=== PATIENT | female | born 1955 | race Caucasian/White ===

== ENCOUNTER 2018-08-07 05:58 | Inpatient (IN) ==
[2018-08-02 09:36] LABS: Basophils # 0.1 10*3/uL (0.0-0.2); Basophils % 1.5 % (0.0-0.8); Eosinophils # 0.2 10*3/uL (0.0-0.87); Eosinophils % 2.3 % (0.00-10.9); Hematocrit 45.1 VOL% (35.7-47.0); Hemoglobin 15.2 GM/DL (12.0-16.0); Immature Granulocytes % 0.3 %; Immature Granulocytes Absolute 0.02 #; Lymphocytes # 2.1 10*3/uL (1.4-4.0); Lymphocytes % 30.4 % (21.3-54.2); Mean Corpuscular HGB Conc 33.7 GM/DL (32-36); Mean Corpuscular Hemoglobin 32 PG (27-34); Mean Platelet Volume 10.4 FL (9.6-12.0); Monocytes # 0.6 10*3/uL (0.11-0.8); Monocytes % 8.9 % (1.7-12.7); Neutrophils # 3.9 10*3/uL (1.4-7.4); Neutrophils % 56.6 % (38.7-73.9); Platelet Count 261 T/CUMM (130-400); Red Cell Distribution Width 12.1 % (9.3-17.3); White Blood Count 6.9 T/CUMM (4-12)
[2018-08-02 09:46] LABS: PT Patient Result 10.2 SECS; Partial Thromboplastin Time 25.9 SECS (0-40)
[2018-08-02 10:05] LABS: Albumin 3.7 G/DL (3.4-5.0); Bilirubin,Total 0.6 MG/DL (0.2-1.0); Calcium 10.1 MG/DL (8.5-10.1); Total Protein 7.9 G/DL (6.4-8.3)
[2018-08-02 10:06] LABS: Osmolality,Calculated 275.7 MOS/KG (273-304); Potassium 4.4 MMOL/L (3.5-5.1)
[2018-08-02 10:25] LABS: Apearance,Urine Slightly Hazy (Clear); Bacteria,Urine Occasional /HPF (Few); Bilirubin,Urine Negative (Negative); Blood, Urine Negative (Negative); Glucose,Urine (UA) Negative (Negative); Ketones,Urine Negative (Negative); Mucus,Urine Occasional /LPF (Occasional); Nitrite,Urine Negative (Negative); Protein,Urine Negative; RBC,Urine <1 /HPF (0-4); Squamous Epithelial Cell,Urine Occasional /HPF (0-10); Urine Color Yellow (Yellow); Urine Specific Gravity 1.016 (1.001-1.035)
[2018-08-07] MEDS ORDERED: ceFAZolin 1,000 MG in SYRINGE 1 EACH IV ONE (06:00)
[2018-08-07] MEDS ORDERED: VANCOMYCIN INJ 1,000 MG in SODIUM CHLORIDE 0.9% 250 ML IV ONE (06:00)
[2018-08-07] MEDS ORDERED: ROPIVACAINE 0.5% 30 ML VIAL ONE (06:29)
[2018-08-07] MEDS ORDERED: LORazepam 1 MG TABLET PO ONE (08:16)
[2018-08-07] MEDS ORDERED: FAMOTIDINE 20 MG TABLET PO ONE (08:16)
[2018-08-07] MEDS ORDERED: ceFAZolin 1,000 MG VIAL ONE (08:18)
[2018-08-07] MEDS ORDERED: VANCOMYCIN 1,000 MG VIAL ONE (08:18)
[2018-08-07] MEDS ORDERED: LORazepam 1 MG TABLET ONE (08:19)
[2018-08-07] MEDS ORDERED: FAMOTIDINE 20 MG TABLET ONE (08:19)
[2018-08-07] MEDS ORDERED: LACTATED RINGERS 1,000 ML IV SCH (08:30)
[2018-08-07] MEDS ORDERED: TRANEXAMIC ACID 1,000 MG/10 ML VIAL ONE (08:47)
[2018-08-07] MEDS ORDERED: BUPIVACAINE SPINAL 0.75% 2 ML AMP SPINAL ONE (08:47)
[2018-08-07] MEDS ORDERED: MIDAZOLAM 2 MG/2 ML VIAL ONE (09:08)
[2018-08-07] MEDS ORDERED: BACITRACIN OINT 0.9 GM PACK TOP ONE (10:48)
[2018-08-07] MEDS ORDERED: MORPHINE 4 MG/1 ML VIAL IV PRN (11:17)
[2018-08-07] MEDS ORDERED: oxyCODONE IR 5 MG TABLET PO PRN ×2 (11:17)
[2018-08-07] MEDS ORDERED: MAGNESIUM HYDROXIDE SUSP 30 ML UDCUP PO PRN (11:17)
[2018-08-07] MEDS ORDERED: ONDANSETRON 4 MG/2 ML VIAL IV PRN (11:17)
[2018-08-07] MEDS ORDERED: ZALEPLON 5 MG CAPSULE PO PRN (11:17)
[2018-08-07] MEDS ORDERED: diphenhydrAMINE CAP 25 MG CAPSULE PO PRN (11:17)
[2018-08-07] MEDS ORDERED: PHENYLEPHRINE 1 MG/10 ML SYRINGE IV ONE (11:35)
[2018-08-07] MEDS ORDERED: PROPOFOL 200 MG/20 ML VIAL IV ONE (11:35)
[2018-08-07] MEDS ORDERED: LACTATED RINGERS 1,000 ML IV ONE (11:35)
[2018-08-07] MEDS ORDERED: ONDANSETRON 4 MG/2 ML VIAL ONE (11:35)
[2018-08-07] MEDS ORDERED: SODIUM CHLORIDE 0.9% 100 ML IV ONE (11:35)
[2018-08-07] MEDS ORDERED: fentaNYL 100 MCG/2 ML VIAL ONE (11:35)
[2018-08-07] MEDS: KETOROLAC 30 MG/1 ML VIAL IV SCH ×3 (13:00→23:29)
[2018-08-07] MEDS: LACTATED RINGERS 1,000 ML IV SCH ×2 (13:07→21:19)
[2018-08-07] MEDS: ACETAMINOPHEN 500 MG TABLET PO SCH ×2 (15:58→21:06)
[2018-08-07] MEDS: MORPHINE 4 MG/1 ML VIAL IV PRN ×2 (16:02→20:01)
[2018-08-07] MEDS: ceFAZolin 1,000 MG in SYRINGE 1 EACH IV SCH (17:53)
[2018-08-07] MEDS: DOCUSATE SODIUM 100 MG CAPSULE PO SCH (21:06)
[2018-08-07] MEDS: FONDAPARINUX 2.5 MG/0.5 ML SYRINGE SUBCUT SCH (21:07)
[2018-08-08] MEDS: ceFAZolin 1,000 MG in SYRINGE 1 EACH IV SCH (02:55)
[2018-08-08] MEDS: MORPHINE 4 MG/1 ML VIAL IV PRN ×2 (03:00→12:25)
[2018-08-08] MEDS: ACETAMINOPHEN 500 MG TABLET PO SCH ×2 (03:20→09:20)
[2018-08-08] MEDS: LACTATED RINGERS 1,000 ML IV SCH (04:58)
[2018-08-08] MEDS: KETOROLAC 30 MG/1 ML VIAL IV SCH (05:31)
[2018-08-08 06:28] LABS: Basophils # 0.1 10*3/uL (0.0-0.2); Eosinophils # 0.2 10*3/uL (0.0-0.87); Eosinophils % 3.3 % (0.00-10.9); Hematocrit 33.4 VOL% (35.7-47.0); Hemoglobin 11.2 GM/DL (12.0-16.0); Immature Granulocytes % 0.4 %; Immature Granulocytes Absolute 0.03 #; Lymphocytes # 1.1 10*3/uL (1.4-4.0); Lymphocytes % 16.8 % (21.3-54.2); Mean Corpuscular HGB Conc 33.5 GM/DL (32-36); Mean Corpuscular Hemoglobin 31 PG (27-34); Mean Corpuscular Volume 93.3 FL (87-102); Mean Platelet Volume 10.9 FL (9.6-12.0); Monocytes # 0.5 10*3/uL (0.11-0.8); Monocytes % 7.2 % (1.7-12.7); Neutrophils # 4.8 10*3/uL (1.4-7.4); Neutrophils % 71.3 % (38.7-73.9); Platelet Count 204 T/CUMM (130-400); Red Blood Count 3.58 MC/CUMM (3.8-5.5); White Blood Count 6.7 T/CUMM (4-12)
[2018-08-08 06:52] LABS: Osmolality,Calculated 280.4 MOS/KG (273-304); Potassium 3.9 MMOL/L (3.5-5.1)
[2018-08-08] MEDS: DOCUSATE SODIUM 100 MG CAPSULE PO SCH ×2 (09:19→20:28)
[2018-08-08] MEDS: TRIAMTERENE/HCTZ 37.5-25 MG TABLET PO SCH (09:19)
[2018-08-08] MEDS: METHYLTEST PO SCH (09:25)
[2018-08-08] MEDS: ESTROGENS PO SCH (09:25)
[2018-08-08] MEDS: CELECOXIB 200 MG CAPSULE PO SCH (18:15)
[2018-08-08] MEDS: FONDAPARINUX 2.5 MG/0.5 ML SYRINGE SUBCUT SCH (20:28)
[2018-08-09 04:01] LABS: Basophils # 0.1 10*3/uL (0.0-0.2); Basophils % 0.9 % (0.0-0.8); Eosinophils # 0.3 10*3/uL (0.0-0.87); Eosinophils % 3.2 % (0.00-10.9); Hematocrit 33.8 VOL% (35.7-47.0); Hemoglobin 11.1 GM/DL (12.0-16.0); Immature Granulocytes % 0.3 %; Immature Granulocytes Absolute 0.03 #; Lymphocytes # 1.6 10*3/uL (1.4-4.0); Lymphocytes % 17.4 % (21.3-54.2); Mean Corpuscular HGB Conc 32.8 GM/DL (32-36); Mean Corpuscular Hemoglobin 31 PG (27-34); Mean Corpuscular Volume 95.2 FL (87-102); Mean Platelet Volume 10.8 FL (9.6-12.0); Monocytes # 0.5 10*3/uL (0.11-0.8); Neutrophils # 6.5 10*3/uL (1.4-7.4); Neutrophils % 72.2 % (38.7-73.9); Platelet Count 184 T/CUMM (130-400); Red Blood Count 3.55 MC/CUMM (3.8-5.5)
[2018-08-09 08:14] VITALS: BP 145/75
[2018-08-09] MEDS ORDERED: ESTROGENS (CONJ) 0.625 MG TABLET PO SCH (09:00)
[2018-08-09] MEDS: CELECOXIB 200 MG CAPSULE PO SCH (09:26)
[2018-08-09] MEDS: DOCUSATE SODIUM 100 MG CAPSULE PO SCH (09:27)
[2018-08-09] MEDS: ESTROGENS PO SCH (09:32)
[2018-08-09] MEDS: METHYLTEST PO SCH (09:32)
[2018-08-09] MEDS: TRIAMTERENE/HCTZ 37.5-25 MG TABLET PO SCH (09:32)
== END 2018-08-09 11:52 | disposition home health service (06) | DRG 470 ==
LOC: N.OR 05:58 → N.SDSINP 06:05 → N.OR 09:37 → N.3E 11:18
PROVIDERS: ADMIT Orthopaedic Surgery; ATTEND Orthopaedic Surgery